=== PATIENT | female | born 1960 | race Caucasian/White ===

== ENCOUNTER 2018-07-24 06:14 | Emergency (ER) | payer OTHER ==
[2018-07-24] MEDS: ALBUTEROL SO4 2.5/IPRATROPIUM 0.5 INH SOL 3 ML VIAL.NEB. NEB SCH ×4 (06:25→07:26)
[2018-07-24] MEDS ORDERED: ALBUTEROL SO4 2.5/IPRATROPIUM 0.5 INH SOL 3 ML VIAL.NEB. NEB ONE (06:26)
--- NOTE | 2018-07-24 06:32 | PDOC ---
History of Present Illness - History of Present Illness Initial Comments: 07/24/18 06:27 58 F with h/o fibromyalgia, asthma, HTN, HLD presenting to ED with cough and wheezing x 4 days. Pt states that she initially had URI-like symptoms 4 days ago , with cough and fever and bodyaches. She saw her PMD, Dr. Hernandez, 3 days ago and was started on ceftin, prednisone 50mg daily, and an albuterol nebulizer, which she has been using about every 6 hours. Pt states that her fevers have resolved, but she has had persistent cough and wheezing, which she feels have gotten worse. Pt denies any N/V/D. Denies abdominal pain. Denies leg swelling. No recent travel. Pt notes that she already took her dose of prednisone today. <Armando España - Last Filed: 07/24/18 06:27> <Ugo Durham - Last Filed: 07/24/18 08:02> - General Chief Complaint: Respiratory Stated Complaint: COUGH SINCE SATURDAY Time Seen by Provider: 07/24/18 06:15 Past History - Past Medical History Anemia: No Asthma: Yes (seasonal) Cancer: No Cardiac Disorders: No CVA: No COPD: No CHF: No Dementia: No Diabetes: No GI Disorders: Yes Disorders: No HTN: Yes Hypercholesterolemia: No Liver Disease: No Psychiatric Problems: Yes Seizures: No Thyroid Disease: Yes - Surgical History Abdominal Surgery: No Appendectomy: No Cardiac Surgery: No Cholecystectomy: Yes Lung Surgery: No Neurologic Surgery: No Orthopedic Surgery: No - Suicide/Smoking/Psychosocial Hx Smoking Status: No Smoking History: Never smoked Have you smoked in the past 12 months: No Number of Cigarettes Smoked Daily: 0 If you are a former smoker, when did you quit?: 1981 'Breaking Loose' booklet given: 11/11/12 Hx Alcohol Use: No Drug/Substance Use Hx: No Substance Use Type: None Hx Substance Use Treatment: No <Armando España - Last Filed: 07/24/18 06:27> <Ugo Durham - Last Filed: 07/24/18 08:02> - Past Medical History Allergies/Adverse Reactions: Allergies Allergy/AdvReac Type Severity Reaction Status Date / Time cyclobenzaprine HCl Allergy Verified 07/24/18 06:19 [From Flexeril] doxycycline calcium Allergy Verified 07/24/18 06:19 [From Vibramycin] doxycycline hyclate Allergy Verified 07/24/18 06:19 [From Vibramycin] doxycycline monohydrate Allergy Verified 07/24/18 06:19 [From Vibramycin] erythromycin base Allergy Verified 07/24/18 06:19 [Erythromycin Base] Penicillins Allergy Verified 07/24/18 06:19 Sulfa (Sulfonamide Allergy Verified 07/24/18 06:19 Antibiotics) [Sulfa(Sulfonamide Antibiotics)] Home Medications: Ambulatory Orders Cholecalciferol (Vitamin D3) [Vitamin D3] 2,000 unit PO DAILY capsule 12/12/16 Albuterol Sulfate Inhaler - [Ventolin Hfa Inhaler -] 1 - 2 inh PO QID 07/24/18 Amlodipine Besylate 2.5 mg PO DAILY 07/24/18 Cefuroxime Axetil [Ceftin -] 500 mg PO Q12H 07/24/18 Prednisone 20 mg PO ONCE #10 tablet 07/24/18 Prednisone [Prednisone 50 MG TABLETS] 50 mg PO DAILY 07/24/18 Review of Systems - Review of Systems Comments:: 07/24/18 06:29 GENERAL/CONSTITUTIONAL: No fever or chills. No weakness. HEAD, EYES, EARS, NOSE AND THROAT: No change in vision. No ear pain or discharge. No sore throat. CARDIOVASCULAR: No chest pain, no shortness of breath, no loss of consciousness RESPIRATORY: + cough, + wheezing, no hemoptysis. GASTROINTESTINAL: No nausea, vomiting, diarrhea or constipation. GENITOURINARY: No dysuria, frequency, or change in urination. MUSCULOSKELETAL: No joint or muscle swelling or pain. No neck or back pain. SKIN: No rash NEUROLOGIC: No vertigo, no change in strength/sensation. ENDOCRINE: No increased thirst. No abnormal weight change. HEMATOLOGIC/LYMPHATIC: No anemia, easy bleeding, or history of blood clots. ALLERGIC/IMMUNOLOGIC: No hives or skin allergy. <Armando España - Last Filed: 07/24/18 06:27> *Physical Exam - Physical Exam Comments: 07/24/18 06:30 "GENERAL: Awake, alert, and fully oriented, in no acute distress. HEAD: No signs of trauma EYES: PERRLA, EOMI, sclera anicteric, conjunctiva clear ENT: Auricles normal inspection, hearing grossly normal, nares patent, oropharynx clear without exudates. Moist mucosa NECK: Nontender, no stepoffs, Normal ROM, supple, no lymphadenopathy, JVD, or masses LUNGS: + diffuse expiratory wheezes HEART: Regular rate and rhythm, normal S1 and S2, no murmurs, rubs or gallops ABDOMEN: Soft, nontender, normoactive bowel sounds. No guarding, no rebound. No masses EXTREMITIES: Normal range of motion, no edema. No clubbing or cyanosis. No cords, erythema, or tenderness NEUROLOGICAL: Cranial nerves II through XII intact. 5/5 strength and sensation in all extremities, Normal speech, normal gait, normal cerebellar function SKIN: Warm, Dry, normal turgor, no rashes or lesions noted. <Armando España - Last Filed: 07/24/18 06:27> - Vital Signs Last Vital Signs Temp Pulse Resp BP Pulse Ox 98.1 F 95 H 18 151/94 96 07/24/18 06:25 07/24/18 06:25 07/24/18 06:25 07/24/18 06:25 07/24/18 06:25 <Ugo Durham S - Last Filed: 07/24/18 08:02> Moderate Sedation - Procedure Monitoring Vital Signs: Procedure Monitoring Vital Signs Temperature 98.1 F 07/24/18 06:25 Pulse Rate 95 H 07/24/18 06:25 Respiratory Rate 18 07/24/18 06:25 Blood Pressure 151/94 07/24/18 06:25 O2 Sat by Pulse Oximetry (%) 96 07/24/18 06:25 <Ugo Durham S - Last Filed: 07/24/18 08:02> ED Treatment Course - Medications Given in the ED: ED Medications Discontinued Medications Generic Name Dose Route Start Last Admin Trade Name Freq PRN Reason Stop Dose Admin Albuterol/Ipratropium 1 amp 07/24/18 06:30 07/24/18 07:26 Duoneb - NEB 07/24/18 07:16 1 amp Q15M FATOUMATA Administration <MarvaRemus S - Last Filed: 07/24/18 08:02> Medical Decision Making - Medical Decision Making 07/24/18 06:30 58 F with cough x 4 days, wheezing on exam. Likely asthma exacerbation 2/2 viral URI. Pt already on steroids x 3 days and was empirically started on ceftin for presumptive PNA, but reports worsening symptoms. - CXR to r/o consolidation - Duonebs - Reassess <Armando España - Last Filed: 07/24/18 06:27> - Medical Decision Making 07/24/18 07:32 Received patient at shift Change Xray chest previously ordeed on display now Much improved d/c home <Ugo Durham - Last Filed: 07/24/18 08:02> *DC/Admit/Observation/Transfer <Armando España - Last Filed: 07/24/18 06:27> <Ugo Durham - Last Filed: 07/24/18 08:02> Diagnosis at time of Disposition: Asthma Qualifiers: Asthma severity: moderate Asthma persistence: unspecified Asthma complication type: with acute exacerbation Qualified Code(s): J45.901 - Unspecified asthma with (acute) exacerbation - Discharge Dispostion Disposition: HOME Condition at time of disposition: Improved - Prescriptions Prescriptions: Prednisone 20 mg PO ONCE #10 tablet - Referrals Referrals: Andi Ricardo MD [Primary Care Provider] - - Patient Instructions - Post Discharge Activity
[2018-07-24 06:33] VITALS: BP 151/94; PULSE 95; TEMP 98.1; BMI 27.6
[2018-07-24] MEDS ORDERED: ALBUTEROL SO4 0.083% IH SOL 2.5 MG/3 ML VIAL.NEB. NEB ONE ×2 (07:47→07:51)
== END 2018-07-24 08:06 | disposition home or self-care (01) ==
LOC: FER 06:14
PROC: 3E0F7GC Introduction of Other Therapeutic Substance into Respiratory Tract, Via Natural or Artificial Opening (ICD-10-PCS; principal; 2018-07-24)
DX: I10 Essential (primary) hypertension (principal); E78.5 Hyperlipidemia, unspecified; M79.7 Fibromyalgia
CPT/HCPCS: 71046-TC-FY; 99281-25

== ENCOUNTER 2020-02-15 17:17 | Emergency (ER) | payer OTHER ==
--- NOTE | 2020-02-15 17:21 | PDOC ---
History of Present Illness - General Chief Complaint: Pain Stated Complaint: POSSIBLE SINUS INFECTION DIZZINESS PAIN Time Seen by Provider: 02/15/20 17:20 - History of Present Illness Initial Comments: HPI: 59yo F with PMH of fibromylgia, asthma, HTN, HLD, "demyelinated spots on MRI" sent by urgent care provider for evaluation of headache, droopy right eye, and stumbling gait. Patient reports she had seen her primary care provider about one week ago and was prescribed prednisone and a nose spray. Because symptoms were not improving, patient started antibiotics yesterday. Saw an urgent care provider today and explained how over the weekend she has had two episodes of listing to the right side while walking. Denies tripping over anything, this has never happened before, and the event self-resolved. Patient reports right eye swelling. Had an 8/10 headache this morning for which she took prednisone and went back to sleep; headache is now rated 3/10. Has never had a headache as severe as this before. Endorsing some shortness of breath which she attributes to her asthma. No fevers, but states she always has chills. PCP: Dr. Ricarod ROS: Constitutional: no fever, +chills HEENT: no throat pain, no dysphagia Cardiovascular: no chest pain, no palpitations Respiratory: no cough, no shortness of breath Gastrointestinal: no abdominal pain, no nausea Genitourinary: no dysuria, no hematuria Musculoskeletal: no myalgia, no arthralgia Skin: no rash, no itching Neurologic: +headache, +lightheaded Psych: no agitation, no anxiety PE: General: Awake, alert, and fully oriented, in no acute distress Head: No signs of trauma, +front pain along frontal and maxillary sinuses Eyes: EOMI, sclera anicteric, eyes mildly puffy along upper lids with mild asymmetry ENT: Moist mucus membranes Neck: Normal ROM, supple Lungs: Lungs with mild expiratory wheezes bilaterally Cardio: Regular rhythm, S1 and S2 present Abdomen: Soft, nontender. No guarding, no rebound, no masses Extremities: Normal range of motion, Distal pulses present Skin: Warm, Dry, normal turgor Neurologic: Cranial nerves II through XII intact. Normal speech, sensation, strength, coordination, and gait. ED Course/MDM: DDX including but not limited to tension headache, ocular migraine, cluster headache, SAH, IIH, temporal arteritis CT head Labs Fluids 02/15/20 17:21 CT head as reported by radiology: "EXAM#: TYPE/EXAM: RESULT: [id number] CT/HEAD CT WITHOUT CONTRAST Cranial CT without contrast Clinical information: headache The exam consists of contiguous direct transaxial images. Intravenous contrast was not adm inistered. No prior imaging exam is available at this facility for direct comparison. No intraparenchymal hemorrhage is seen. There is no CT evidence of acute subarachnoid hemorrhage. Correlate clinically. No extra-axial fluid collection is noted. There is no gross mass lesion on noncontrast imaging. No obvious infarct is identified. The ventricles and cisterns appear unremarkable. The partially imaged paranasal sinuses demonstrate no opacification. Impression: No CT evidence of acute intracranial pathology. Re ported By: Zoltan Myers MD 02/15/20 [id number] " CBC WBC 10.2 K/mm3 (4.0-10.8) 02/15/20 18:30 RBC 4.81 M/mm3 (3.60-5.2) 02/15/20 18:30 Hgb 14.4 GM/dl (10.7-15.3) 02/15/20 18:30 Hct 42.9 % (32.4-45.2) 02/15/20 18:30 MCV 89.3 fl (80-96) 02/15/20 18:30 MCH 29.9 pg (25.7-33.7) 02/15/20 18:30 MCHC 33.5 g/dl (32.0-36.0) 02/15/20 18:30 RDW 12.6 % (11.6-15.6) 02/15/20 18:30 Plt Count 422 K/MM3 (134-434) 02/15/20 18:30 MPV 8.7 fl (7.5-11.1) 02/15/20 18:30 Absolute Neuts (auto) 8.5 K/mm3 02/15/20 18:30 Neutrophils % 83.7 % (42.8-82.8) H 02/15/20 18:30 Lymphocytes % 11.5 % (8-40) 02/15/20 18:30 Monocytes % 3.1 % (3.8-10.2) L 02/15/20 18:30 Eosinophils % 0.0 % (0-4.5) 02/15/20 18:30 Basophils % 1.7 % (0-2.0) 02/15/20 18:30 No leukocytosos or anemia Pending chemistries 02/15/20 18:58 CMP Sodium 136 mmol/L (136-145) 02/15/20 18:07 Potassium 5.2 mmol/L (3.5-5.1) H 02/15/20 18:07 Chloride 102 mmol/L (98-107) 02/15/20 18:07 Carbon Dioxide 23 mmol/L (21-32) 02/15/20 18:07 Anion Gap 11 MMOL/L (8-16) 02/15/20 18:07 BUN 18.0 mg/dl (7-18) 02/15/20 18:07 Creatinine 0.7 mg/dl (0.55-1.3) 02/15/20 18:07 Est GFR (CKD-EPI)AfAm 109.15 02/15/20 18:07 Est GFR (CKD-EPI)NonAf 94.17 02/15/20 18:07 Random Glucose 108 mg/dl (74-106) H 02/15/20 18:07 Calcium 9.3 mg/dl (8.5-10) 02/15/20 18:07 Total Bilirubin 1.3 mg/dl (0.2-1) H 02/15/20 18:07 AST 32 U/L (15-37) 02/15/20 18:07 ALT 17 U/L (13-61) 02/15/20 18:07 Alkaline Phosphatase 95 U/L (45-117) 02/15/20 18:07 Creatine Kinase 99 U/L (26-192) 02/15/20 18:07 Troponin I < 0.03 ng/ml (0.00-0.05) 02/15/20 18:07 Total Protein 7.4 g/dl (6.4-8.2) 02/15/20 18:07 Albumin 4.0 g/dl (3.4-5.0) 02/15/20 18:07 K is mildly elevated, but slightly hemolyzed Cr normal No transaminitis Tpn undetectable 02/15/20 19:05 Workup without acute pathology Likely not TIA as gait abnormality was very short-lived To follow up with neurologist and primary care physician Return precautions Stable for discharge Past History - Medical History Allergies/Adverse Reactions: Allergies Allergy/AdvReac Type Severity Reaction Status Date / Time erythromycin base Allergy Severe Difficulty Verified 02/15/20 17:22 [Erythromycin Base] Breathing cyclobenzaprine HCl Allergy Verified 02/15/20 17:21 [From Flexeril] doxycycline calcium Allergy Verified 02/15/20 17:21 [From Vibramycin] Penicillins Allergy Verified 02/15/20 17:22 Sulfa (Sulfonamide Allergy Verified 02/15/20 17:22 Antibiotics) [Sulfa(Sulfonamide Antibiotics)] Home Medications: Ambulatory Orders Amlodipine Besylate 5 mg PO DAILY 07/24/18 Cefuroxime Axetil [Ceftin -] 500 mg PO Q12H 07/24/18 Atorvastatin Ca [Lipitor] 10 mg PO HS 02/15/20 Prednisone 40 mg PO ONCE 02/15/20 Trospium Chloride [Trospium Chloride ER] 60 mg PO DAILY 02/15/20 Anemia: No Asthma: Yes (seasonal) Cancer: No Cardiac Disorders: No CVA: No COPD: No CHF: No Dementia: No Diabetes: No GI Disorders: Yes Disorders: No HTN: Yes Hypercholesterolemia: No Liver Disease: No Psychiatric Problems: Yes Seizures: No Thyroid Disease: Yes - Surgical History Abdominal Surgery: No Appendectomy: No Cardiac Surgery: No Cholecystectomy: Yes Lung Surgery: No Neurologic Surgery: No Orthopedic Surgery: No - Psycho-Social/Smoking History Smoking Status: No Smoking History: Never smoked Have you smoked in the past 12 months: No Number of Cigarettes Smoked Daily: 0 If you are a former smoker, when did you quit?: 1981 'Breaking Loose' booklet given: 11/11/12 ED Treatment Course - LABORATORY CBC & Chemistry Diagram: 02/15/20 18:30 02/15/20 18:07 Discharge - Discharge Information Problems reviewed: Yes Clinical Impression/Diagnosis: Headache Qualifiers: Headache type: tension-type Headache chronicity pattern: episodic headache Intractability: not intractable Qualified Code(s): G44.219 - Episodic tension- type headache, not intractable Condition: Stable Disposition: HOME - Follow up/Referral Referrals: Andi Ricardo MD [Primary Care Provider] - - Patient Discharge Instructions Patient Printed Discharge Instructions: DI for Sinusitis Additional Instructions: Return to the emergency department immediately with ANY new, persistent or worsening symptoms. You MUST call and follow up with your doctor/neurologist in 4-5 days for further evaluation of your symptoms. Results were discussed with you. Please make sure your doctor reviews the results of your emergency evaluation. Your Emergency Department visit is not complete without a follow up with your doctor. Print Language: LIBERIAN - Post Discharge Activity
[2020-02-15 17:46] VITALS: BP 128/93; PULSE 91; TEMP 98.4; BMI 28.5
--- NOTE | 2020-02-15 18:14 | PDOC ---
Attending Attestation - Resident Resident Name: Claudine Munguia - ED Attending Attestation I have performed the following: I have examined & evaluated the patient, The case was reviewed & discussed with the resident, I agree w/resident's findings & plan, Exceptions are as noted - HPI HPI: 02/15/20 18:06 59y F hx of fibromalgia, migraine headaches, sent by urgent care for evaluation of complaint of resolved headache, intermittent gait abnormalities. Pt has been having a frontal headache, was dx with sinisutis with delayed abx by urgent care, which she started yesterday. On saturday, she was ambulating down stairs and onthe last step, swayed to the right, then she walked to the car normally. Pt had another episode where she again swayed and was sent to the ED for evaluation. Pt states she currently feels fine without any complaints. Pt notse she had a headache this morning around 6am, took a prednisone went back to bed, and her sx resolved by 9am when she woke up from her nap. pt notse some nasal congestion and post nasal drip. denesi any associated fever, vision changes, cough, sob, hemoptysis. no associated neuro sx, focal weakness, dizziness, vision changes, numbness/tingling/weakness, cp, sob, palpitations, at any point. - Physicial Exam PE: 02/15/20 19:23 GENERAL: The patient is awake, alert, and fully oriented, Nontoxic - in no acute distress. HEAD: Normocephalic, atraumatic. mild tenderness to the frotnal sinuses EYES: extraocular movements intact, sclera anicteric, conjunctiva clear. ENT: Normal voice, Moist mucous membranes. NECK: Normal range of motion, supple LUNGS: Breath sounds equal, clear to auscultation bilaterally. No wheezes, no rhonchi, no rales. HEART: Regular rate and rhythm, normal S1 and S2 without murmur, rub or gallop. ABDOMEN: Soft, nontender, No guarding, no rebound. No CVA tenderness EXTREMITIES: Normal range of motion, no edema. PSYCH: Normal mood, normal affect. SKIN: Warm, Dry, normal turgor, NEURO: Mental status: The patient is oriented x3. Cranial nerves: Cranial nerves II through XII are intact Motor: The upper extremities are 5 over 5 in all muscle groups. The lower extremities are 5 over 5 in all muscle groups. Negative pronator drift Sensation: Sensation is intact to light touch throughout. romberg negative Cerebellar: Dbxian-[id number]-febh is normal in both upper extremities. Szwn-rjwh-[id number] is normal in both lower extremities. rapid alternating movements are normal. Reflexes: 2+ and symmetric in the upper and lower extremities. Gait: Normal. Heel and toe walking are normal. Tandem gait is normal. - Medical Decision Making 02/15/20 19:24 pts labs reviewed, no signs of anemia, metablic dernagement ct head negative suspect sh ewas simply off balance for her swaying ats it lasted 1 step /split second. inconsistent with TIA will dc and refer her to her PMD/neuro for further evaulation returnprecautions were dsicussed Heart Score/ECG Review - ECG Impressions Comment:: 02/15/20 19:35 Twelve-lead EKG was performed and reviewed by me. There is normal sinus rhythm with a normal rate. Rate of 77 The axis is normal. The intervals are normal. There is normal R wave progression There are no ST or T wave abnormalities. Impression: Normal twelve-lead EKG Discharge - Discharge Information Problems reviewed: Yes Clinical Impression/Diagnosis: Headache Qualifiers: Headache type: tension-type Headache chronicity pattern: episodic headache Intractability: not intractable Qualified Code(s): G44.219 - Episodic tension- type headache, not intractable Condition: Stable Disposition: HOME - Admission No - Follow up/Referral Referrals: Andi Ricardo MD [Primary Care Provider] - - Patient Discharge Instructions Patient Printed Discharge Instructions: DI for Sinusitis Additional Instructions: Return to the emergency department immediately with ANY new, persistent or worsening symptoms. You MUST call and follow up with your doctor/neurologist in 4-5 days for further evaluation of your symptoms. Results were discussed with you. Please make sure your doctor reviews the results of your emergency evaluation. Your Emergency Department visit is not complete without a follow up with your doctor. Print Language: MARSHALLESE - Post Discharge Activity
[2020-02-15 18:44] LABS: BASO % 1.7 % (0-2.0); HEMATOCRIT 42.9 % (32.4-45.2); HEMOGLOBIN 14.4 GM/dl (10.7-15.3); LYMPH % 11.5 % (8-40); MCH 29.9 pg (25.7-33.7); MCHC 33.5 g/dl (32.0-36.0); MEAN CELL VOLUME 89.3 fl (80-96); MEAN PLT VOLUME 8.7 fl (7.5-11.1); MONO % 3.1 % (3.8-10.2); NEUT % 83.7 % (42.8-82.8); PLATELET COUNT 422 K/MM3 (134-434); RBC 4.81 M/mm3 (3.60-5.2); RDW 12.6 % (11.6-15.6); WHITE BLOOD COUNT 10.2 K/mm3 (4.0-10.8)
[2020-02-15 18:53] LABS: ACTIVATED PTT 26.1 SECONDS (25.2-36.5)
[2020-02-15 18:57] LABS: BILIRUBIN,TOTAL 1.3 mg/dl (0.2-1); CALCIUM 9.3 mg/dl (8.5-10); CREATININE 0.7 mg/dl (0.55-1.3); TOT PROT 7.4 g/dl (6.4-8.2)
[2020-02-15 18:58] LABS: INR 1.06 (0.82-1.09); PROTHROMBIN TIME (PATIENT) 11.8 SEC (10.2-13.0)
[2020-02-15 19:00] LABS: POTASSIUM 5.2 mmol/L (3.5-5.1)
--- NOTE | 2020-02-16 10:38 | EKG ---
Test Reason : Blood Pressure : / mmHG Vent. Rate : 077 BPM Atrial Rate : 077 BPM P-R Int : 134 ms QRS Dur : 080 ms QT Int : 402 ms P-R-T Axes : 037 032 036 degrees QTc Int : 454 ms NORMAL SINUS RHYTHM LOW VOLTAGE QRS BORDERLINE ECG NO PREVIOUS ECGS AVAILABLE Confirmed by Parvez Miller MD ([id number]) on 02/16/2020 10:38:26 AM Referred By: Confirmed By:Parvez Miller MD
== END 2020-02-15 19:57 | disposition home or self-care (01) ==
LOC: FER 17:17
DX: G44.219 Episodic tension-type headache, not intractable (principal)
CPT/HCPCS: 36415; 70450-TC; 71045-TC-FY; 80053; 81003; 81015; 82550; 84484; 85025; 85610; 85730; 87086; 87186; 93005; 99285-25

== ENCOUNTER 2023-01-24 06:11 | Day surgery (SDC) | payer BC ==
[2023-01-17 09:45] VITALS: BMI 28.0
[2023-01-24] MEDS ORDERED: BUPIVACAINE HCL/PF 0.25% (2.5MG/ML) 10 ML VIAL ONE (07:17)
[2023-01-24] MEDS ORDERED: MIDAZOLAM HCL 2 MG/2 ML SINGLE DOSE VIAL ONE (07:17)
[2023-01-24] MEDS ORDERED: EPINEPHrine 1:1,000 1,000 MCG/ML ML ONE (07:17)
[2023-01-24] MEDS ORDERED: PROPOFOL 20 ML ONE (07:17)
[2023-01-24] MEDS ORDERED: CLINDAMYCIN 600MG PREMIX IVPB 600 MG/50 ML BAG IVPB ONE ×2 (07:57)
[2023-01-24] MEDS ORDERED: ONDANSETRON 4 MG/2 ML VIAL ONE ×3 (08:01→09:20)
[2023-01-24] MEDS ORDERED: DEXAMETHASONE SOD PHOSPHATE 4 MG/1 ML VIAL ONE (08:01)
[2023-01-24] MEDS ORDERED: KETOROLAC TROMETHAMINE 30 MG/1 ML VIAL ONE (08:01)
[2023-01-24] MEDS ORDERED: ONDANSETRON 4 MG/2 ML VIAL IVPUSH PRN (09:04)
[2023-01-24] MEDS ORDERED: oxyCODONE HCL 5 MG TABLET PO PRN (09:04)
[2023-01-24 09:15] VITALS: TEMP 97.5
[2023-01-24] MEDS ORDERED: LACTATED RINGERS SOLUTION 1,000 ML IV SCH (09:15)
[2023-01-24] MEDS ORDERED: FENTANYL CITRATE/PF 50 MCG/ML VIAL ONE (09:20)
[2023-01-24 10:06] VITALS: RESP 18
[2023-01-24] MEDS ORDERED: oxyCODONE HCL 5 MG TABLET ONE (10:16)
[2023-01-24 10:47] VITALS: BP 125/74; PULSE 81
== END 2023-01-24 10:40 | disposition home or self-care (01) ==
LOC: FASU 06:11
PROVIDERS: ATTEND Orthopaedic Surgery Sports Medicine
PROC: 0SBC4ZZ Excision of Right Knee Joint, Percutaneous Endoscopic Approach (ICD-10-PCS; principal; 2023-01-24 08:11)
DX: S83.241A Other tear of medial meniscus, current injury, right knee, initial encounter (principal); X58.XXXA Exposure to other specified factors, initial encounter; Y93.9 Activity, unspecified; Y92.9 Unspecified place or not applicable
CPT/HCPCS: 94760